=== PATIENT | male | born 1975 | race Caucasian/White ===

== ENCOUNTER 2021-04-06 06:42 | Emergency (ER) | payer OTHER ==
[~2021-04-06] VITALS: Ht 175.3 cm; Wt 78.0 kg
[2021-04-06 06:45] VITALS: BP 132/85
[2021-04-06] MEDS ORDERED: MECLIZINE 25 MG TAB PO ONE (07:15)
--- NOTE | 2021-04-06 07:50 | NUR ---
45 Y/O M BIB SELF FROM HOME, PT C/O FEELING LIGHTHEADED WHILE DRIVING THIS MORNING. DENIES LOC, HEAD INJURY OR FALL. 0/10 PAIN AT THIS TIME,. PT DESCRIBES IT THE DISCOMFORT "FLUTTER' AND "VIBRATION" LOCATED ON THE BACK OF HIS HEAD. DENIES N/V/D; SKIN IS PINK/WARM/DRY; AAOX4 WITH EVEN AND STEADY GAIT; LUNGS CLEAR BL; HR EVEN AND REGULAR; PT DENIES ANY FEVER, CP, SOB, OR COUGH AT THIS TIME; PATIENT STATES PAIN OF 0/10 AT THIS TIME; VSS; PATIENT POSITIONED FOR COMFORT; HOB ELEVATED; BEDRAILS UP X2; BED DOWN. ER MD MADE AWARE OF PT STATUS. NKDA. PMH: DENIES
--- NOTE | 2021-04-06 10:00 | NUR ---
Dr. Murphy is evaluating the patient at bedside.
[2021-04-06 10:26] LABS: BASOPHILS % (AUTO) 0.4 % (0.0-2.0); EOSINOPHILS % (AUTO) 0.4 % (0.0-4.0); HEMATOCRIT 46.1 % (36-52); HEMOGLOBIN 15.3 g/dL (12.0-18.0); LYMPHOCYTES # (AUTO) 1.2 K/uL (2.0-11.5); LYMPHOCYTES % (AUTO) 24.3 % (20.5-51.1); MEAN CORPUSCULAR HEMOGLOBIN 32 pg (27-31); MEAN CORPUSCULAR HGB CONC 33 g/dL (33-37); MEAN CORPUSCULAR VOLUME 95.6 fL (80-94); MONOCYTES # (AUTO) 0.3 K/uL (0.8-1.0); MONOCYTES % (AUTO) 6.7 % (1.7-9.3); NEUTROPHILS # (AUTO) 3.4 K/uL (1.8-7.7); NEUTROPHILS % (AUTO) 68.2 % (42.2-75.2); PLATELET COUNT (AUTO) 306 K/uL (140-450); RED BLOOD CELL COUNT(AUTO) 4.82 MIL/uL (4.20-6.10); RED CELL DISTRIBUTION WIDTH 13.9 % (11.6-13.7)
[2021-04-06 10:32] LABS: ANION GAP 11.6 (8-16); CARBON DIOXIDE 29.6 mmol/L (21-32); CREATININE 1.2 mg/dL (0.6-1.3); POTASSIUM 4.2 mmol/L (3.5-5.1)
--- NOTE | 2021-04-06 11:10 | NUR ---
Note undone in EDM - 04/06/21 at 1110 by [facility] 45 Y/O M BIB SELF FROM HOME, PT C/O FEELING LIGHTHEADED WHILE DRIVING THIS MORNING. DENIES LOC, HEAD INJURY OR FALL. 0/10 PAIN AT THIS TIME,. PT DESCRIBES IT THE DISCOMFORT "FLUTTER' AND "VIBRATION" LOCATED ON THE BACK OF HIS HEAD. DENIES N/V/D; SKIN IS PINK/WARM/DRY; AAOX4 WITH EVEN AND STEADY GAIT; LUNGS CLEAR BL; HR EVEN AND REGULAR; PT DENIES ANY FEVER, CP, SOB, OR COUGH AT THIS TIME; PATIENT STATES PAIN OF 0/10 AT THIS TIME; VSS; PATIENT POSITIONED FOR COMFORT; HOB ELEVATED; BEDRAILS UP X2; BED DOWN. ER MADE AWARE OF PT STATUS. NKDA. PMH: DENIES
[2021-04-06] MEDS ORDERED: MECL-303 PO (11:16)
[2021-04-06 11:47] VITALS: BP 132/85
--- NOTE | 2021-04-06 11:48 | NUR ---
Patient discharged with v/s stable. Written and verbal after care instructions given FOR DIZZINESS and explained. Patient alert, oriented and verbalized understanding of instructions. Ambulatory with steady gait. All questions addressed prior to discharge. ID band removed. Patient advised to follow up with PMD. Rx of MECLIZINE 25MG PO TID PRN DIXZZINESS given. Patient educated on indication of medication including possible reaction and side effects. Opportunity to ask questions provided and answered.
== END 2021-04-06 11:39 | disposition home or self-care (01) ==
LOC: MED 06:42
DX: R42 Dizziness and giddiness (principal); M54.2 Cervicalgia; R00.2 Palpitations; R06.02 Shortness of breath
CPT/HCPCS: 36415; 71045; 80048; 84484; 85025; 93005; 99285; J8597